=== PATIENT | male | born 1930 | race Hispanic/Latino ===

== ENCOUNTER 2019-10-16 12:58 | Day surgery (SDC) | payer MEDICARE, OTHER ==
[~2019-10-16 12:58] MED LIST: ceFAZolin/Water 2 GM/20 ML 2 GM/20 ML SYRINGE IV NR
[2019-10-16] MEDS ORDERED: fentaNYL 100 MCG/2 ML INJ ONE (13:52)
[2019-10-16] MEDS ORDERED: LIDOCAINE MPF (2%) 20 MG/1 ML VIAL 5 ML ONE (13:52)
[2019-10-16] MEDS ORDERED: propofoL 200 MG/20 ML VIAL IV ONE (13:52)
--- NOTE | 2019-10-16 14:09 | Anesthesia Day of Surgery ---
Anesthesia Day of Surgery - Day of Surgery Patient Examined: Yes Patient H&P Reviewed: Yes Patient is NPO: Yes Beta Blockers: No Cardiac Clearance: Yes
--- NOTE | 2019-10-16 14:10 | Anesthesia Consultation ---
Anesthesia Consult and Med Hx Date of service: 10/16/19 - Airway Anesthetic Teeth Evaluation: Chipped, Caps, Crowns ROM Head & Neck: Inadequate Mental/Hyoid Distance: Adequate Mallampati Class: Class III Intubation Access Assessment: Possibly Difficult - Pulmonary Exam CTA: Yes - Cardiac Exam Cardiac Exam: RRR - Pre-Operative Health Status ASA Pre-Surgery Classification: ASA4 Proposed Anesthetic Plan: General (LMA) - Pulmonary Hx Smoking: No SOB: Yes (with exertion) COPD: Yes (PRN INHALERS) Hx Sleep Apnea: No (SONU PRE SCREEN HIGH RISK) - Cardiovascular System Hx Hypertension: Yes Hx Cardia Arrhythmia: Yes (SSS) Hx Pacemaker: Yes (PLACED 2007, last checked 09/12/14) - Central Nervous System Hx Neuromuscular Disorder: Yes (Tremors treated with propranolol) Hx Seizures: No CVA: No Hx Psychiatric Problems: Yes - Gastrointestinal Hx Gastroesophageal Reflux Disease: Yes (controlled w/ meds) - Endocrine Hx Renal Disease: No 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
[2019-10-16] MEDS ORDERED: fentaNYL 100 MCG/2 ML INJ IV PRN (14:11)
[2019-10-16] MEDS ORDERED: ONDANSETRON 4 MG/2 ML INJ IV PRN (14:11)
[2019-10-16] MEDS ORDERED: ceFAZolin/STERILE WATER 2 GM/20 ML SYRINGE IV NR (15:00)
[2019-10-16] MEDS ORDERED: LACTATED RINGERS 1,000 ML IV SCH (15:00)
[2019-10-16] MEDS ORDERED: ONDANSETRON 4 MG/2 ML INJ ONE (15:33)
[2019-10-16] MEDS ORDERED: PHENYLEPHRINE/NS 1,000 MCG/10 ML SYRINGE (OR USE) IV ONE (15:40)
--- NOTE | 2019-10-16 15:42 | Short Stay Summary ---
Short Stay Documentation Date of service: 10/16/19 - History H&P: obtained from office - Allergies and Medications Current Medications: Allergies adhesive tape Allergy (Intermediate, Verified 10/15/19 09:52) Itching morphine Allergy (Verified 10/15/19 09:52) HALLUCINATIONS Home Medications Medication Instructions Recorded Confirmed Last Taken Type Aspirin EC [Halfprin EC] 81 mg PO DAILY 10/30/14 10/16/19 10/09/19 09:00 History Levothyroxine [Synthroid] 25 mcg PO DAILY 10/30/14 10/16/19 10/15/19 09:00 History Losartan/Hydrochlorothiazide 1 tab PO DAILY 10/30/14 10/16/19 10/15/19 09:00 History [Hyzaar 100-25 TAB] Propranolol LA [Inderal LA] 80 mg PO TID 10/30/14 10/16/19 10/15/19 17:00 History Prostate Health Caplet 2 cap PO DAILY 10/11/19 10/16/19 10/15/19 09:00 History ALBUTEROL NEB's [Proventil 0.083% 2.5 mg IH TID PRN 10/15/19 10/16/19 10/15/19 09:00 History NEBS] Fluticasone [Flonase] 1 spray NS QDAY 10/15/19 10/16/19 10/15/19 09:00 History Montelukast [Singulair] 10 mg PO QPM 10/15/19 10/16/19 10/15/19 20:00 History Active Medications Cefazolin Sodium (Ancef/Sterile Water 2 Gm/20 Ml) 2 gm IV PREOP NR Stop: 10/16/19 23:59 Fentanyl (Sublimaze) 50 mcg IV Q5MIN PRN PRN Reason: Pain , Severe (7-10) Cefazolin Sodium (Ancef/Sterile Water 2 Gm/20 Ml) 2 gm in 20 mls @ 80 mls/hr IV PREOP NR; Protocol Stop: 10/16/19 23:59 Lactated Ringer's (Lactated Ringers) 1,000 mls @ 42 mls/hr IV DIRECT VENTURA Last Admin: 10/16/19 14:20 Dose: 42 mls/hr Documented by: Ondansetron HCl (Zofran) 4 mg IV ONCE PRN PRN Reason: Nausea And Vomiting - Brief post op/procedure progress note Date of procedure: 10/16/19 Pre-op diagnosis: bladder tumors Post-op diagnosis: other (prostate lesion) Procedure: cysto, rt rpg, TURBTs, cystogram Anesthesia: GETA Surgeon: DESTINEE CASE Estimated blood loss: minimal Pathology: list (bladder tumors, prostate lesion) Specimen disposition: to lab Condition: stable - Hospital course Hospital course: macrobid , ultram, norco on chart - Disposition Condition at discharge: Stable Disposition: DC-01 TO HOME OR SELFCARE Short Stay Discharge Plan Follow up with: JOSESITO VAUGHN MD [Primary Care Provider] - 7 Days
--- NOTE | 2019-10-16 16:15 | Operative Report ---
PREOPERATIVE DIAGNOSIS: Multiple bladder tumors. POSTOPERATIVE DIAGNOSES: Multiple bladder tumors, prostatic lesion. PROCEDURE: Cystoscopy, right retrograde pyelogram, transurethral resection of bladder tumors (posterior wall and dome), transurethral resection of prostatic lesion and cystogram. SURGEON: Cornelius Mcallister M.D. ANESTHESIA: General. ESTIMATED BLOOD LOSS: Minimal. FLUIDS: Crystalloid. INDICATIONS: This patient is an 89-year-old gentleman, seen and underwent office cystoscopy for bladder tumors in the past. He was found to have multiple small papillary tumors on the posterior and anterior abdominal wall approximately 4. He presents now for surgical intervention. He received cardiac clearance from Dr. Fifi Rubio, presents now for surgical intervention. DESCRIPTION OF PROCEDURE: The patient was taken to the operative suite, placed in a supine position. After adequate general anesthesia, he was placed in a dorsal lithotomy position, prepped and draped in a sterile fashion. Pancystourethroscopy was performed with 22-Martiniquais Storz cystoscope, no urethral abnormalities. His prostate displayed some mild trilobar obstruction. He had a lesion on the 12 o'clock position of the prostate, appeared to be prostatic in nature, but was uncertain. Diffuse trabeculation and some cellules could be appreciated. Right ureteral orifice could be appreciated, the left could not due to the trabeculation. Right retrograde pyelogram was obtained with an 8-Martiniquais [place] catheter and 8 mL of contrast. No filling defects or obstruction. Looking at the bladder, he had as mentioned approximately 4 small papillary lesions on the posterior and anterior wall. Using a 24-Martiniquais resectoscope, the lesions were TUR using cutting and coag 120 and 60. The base was cauterized. Due to the cellules, it appeared that his bladder wall was thinned. A 22-Martiniquais 3-way catheter was placed. It was plugged. Cystogram confirmed possibly a small extraperitoneal leak. Rectal exam was benign. He was extubated and taken to recovery room. JOB# [id number] BHARATHI/STEFANO
--- NOTE | 2019-10-16 16:23 | Fluoroscopy Report ---
7 fluoroscopic images submitted Indication: Intraoperative localization Impression: 7 images of the right ureter and bladder were submitted for documentation purposes with radiology involvement. A right-sided retrograde pyelogram was performed as well as a cystogram. Ther e was reportedly also prosthetic biopsy. Approximately 50 mL of Omnipaque 300 was utilized for this e xam. Please refer to the operative note for complete details. Fluoroscopic time: 0.1 minutes Signer Name: Ozzie Man MD Signed: 10/16/2019 4:18 PM Workstation Name: [id number]
[2019-10-16 16:42] VITALS: BP 147/73
--- NOTE | 2019-10-16 22:32 | Post Anesthesia Evaluation ---
- Post Anesthesia Evaluation Patient Participated: Yes Airway Patent: Yes Stable Respiratory Function: Yes Nausea/Vomiting: No Temp > 96.8F: Yes Pain Manageable: Yes Adequeate Hydration: Yes Anesthesia Complications: No Block Receding Appropriately: Not Applicable Patient on Ventilator: No
== END 2019-10-16 17:35 | disposition home or self-care (01) ==
LOC: OR 12:58
PROVIDERS: ATTEND Urology
DX: C61 Malignant neoplasm of prostate (principal); I10 Essential (primary) hypertension; K21.9 Gastro-esophageal reflux disease without esophagitis; J44.9 Chronic obstructive pulmonary disease, unspecified; E03.9 Hypothyroidism, unspecified; E78.00 Pure hypercholesterolemia, unspecified; F32.9 Major depressive disorder, single episode, unspecified; Z79.82 Long term (current) use of aspirin; Z79.899 Other long term (current) drug therapy; Z88.6 Allergy status to analgesic agent; Z88.8 Allergy status to other drugs, medicaments and biological substances; Z90.49 Acquired absence of other specified parts of digestive tract; Z98.890 Other specified postprocedural states
CPT/HCPCS: 36415; 51600; 52234; 55700; 74420; 74430; 84132; 88305; 88342; J0690; J2370; J2405; J2704; J3010; J7120; Q9967